=== PATIENT | male | born 1980 | race Caucasian/White ===

== ENCOUNTER 2016-04-23 23:08 | Emergency (ER) | payer MEDICAID ==
[2016-04-23 23:23] VITALS: RESP 16; TEMP 98.4; O2SAT 96
[2016-04-24] MEDS ORDERED: TRIAMCINOLONE 0.1% 15 GM CRTUBE TP SCH
[2016-04-24] MEDS ORDERED: DEXAMETHASONE 4 MG TAB PO ONE (00:32)
[2016-04-24] MEDS ORDERED: FAMOTIDINE 20 MG TAB PO ONE (00:32)
--- NOTE | 2016-04-24 00:36 | EDPHY ---
H & P Stated Complaint: c/o itching from back down LUE Source: Patient Exam Limitations: No limitations - Medical/Surgical History Hx Asthma: No Hx Chronic Respiratory Disease: No Hx Diabetes: No Hx Cardiac Disease: No Hx Renal Disease: No Hx Cirrhosis: No Hx Alcoholism: No Hx HIV/AIDS: No Hx Splenectomy or Spleen Trauma: No Other PMH: Chronic back pain, migraines, reflux, head injury, syncope, chest pain - Social History Smoking Status: Former smoker HPI/ROS: CHIEF COMPLAINT: Itching, rash HISTORY OF PRESENT ILLNESS: patient complains of several days history of itching and rash. This is primarily to the left arm has also spread to the back and right arm. There is nothing between the fingers or toes. Moderately pruritic. No redness surrounding it. No purulence. No fever or chills. No headache. No neck pain or stiffness. No known contacts that caused this. No swelling of the mouth, lips or tongue. No difficulty breathing. Has had similar things in the past that responded to a medication that his has, but the medications that help this time. Has no other associated complaints or modifying factors. The patient is homeless and does live in a nursing home right now. REVIEW OF SYSTEMS: Ten systems reviewed and are negative unless otherwise noted in the HPI EXAMINATION General Appearance: Alert, no distress Head: normocephalic, atraumatic Eyes: Pupils equal and round, no conjunctival pallor or injection ENT, Mouth: Mucous membranes moist . Airway is patent. There is no edema of the mouth, lips or tongue. No erythema Neck: Normal inspection, supple, non-tender Respiratory: Lungs are clear to auscultation Cardiovascular: Regular rate and rhythm . No murmur. Gastrointestinal: Abdomen is soft and nontender Back: non-tender, no bony abnormalities Neurological: A&O, nonfocal, normal gait Skin: Warm and dry, Erythematous an urticarial rash to the arms and trunk. There are no lesions between the fingers. No evidence of scabies. No petechiae or purpura. Extremities: Nontender, no pedal edema Psychiatric: Mood and affect normal DIFFERENTIAL DIAGNOSES: Including but not limited to Urticaria, contact dermatitis, dermatitis NOS, MDM: rash to the arms and trunk that is pruritic. There is no petechiae or purpura. No evidence of scabies or bed bugs. No involvement of the airway oropharynx. I will discharge the patient home with a topical steroid, a dose of Decadron, and Pepcid. I do not appreciate any other systemic illness. He has instructions to follow up at [facility] for definitive care. SUPERVISION: This patient was independently evaluated without the aide of supervising physician. (Denny Cesar) Constitutional: Initial Vital Signs Temperature (C) 36.9 C 04/23/16 23:20 Heart Rate 76 04/23/16 23:20 Respiratory Rate 16 04/23/16 23:20 Blood Pressure 126/69 H 04/23/16 23:20 O2 Sat (%) 96 04/23/16 23:20 O2 Delivery Mode Room Air Allergies/Adverse Reactions: morphine Allergy (Intermediate, Verified 04/23/16 23:23) makes my left side seize up Home Medications: Medication Instructions Recorded Triamcinolone 0.1% [Triamcinolone 1 vanessa TP TID #1 cream 04/24/16 0.1% Cream] Medical Decision Making ED Course/Re-evaluation: PHYSICIAN DOCUMENTATION: The patient was evaluated and managed by the Physician [employer] Machine Setter. My co- signature indicates that I have reviewed this chart and I agree with the findings and plan of care as documented. I am the secondary supervising physician. (Dolores Glover) - Data Points Medications Given: Discontinued Medications Dexamethasone (Decadron) 8 mg PO EDNOW ONE Stop: 04/24/16 00:33 Last Admin: 04/24/16 00:42 Dose: 8 mg Famotidine (Pepcid) 20 mg PO EDNOW ONE Stop: 04/24/16 00:33 Last Admin: 04/24/16 00:42 Dose: 20 mg Triamcinolone (Triamcinolone 0.025%) 1 vanessa TP TID KIMI Stop: 10/21/16 08:59 Last Admin: 04/24/16 00:41 Dose: 1 vanessa Departure - Departure Disposition: Home, Routine, Self-Care Clinical Impression: Pruritic rash Condition: Good Instructions: Triamcinolone (On the skin), Urticaria (ED), Acute Rash (ED) Additional Instructions: follow-up with [facility]. Prescriptions as listed and discussed. Benadryl 25-50 mg [id number] every 6 hours as needed. Return to the ER for worsening symptoms, difficulty breathing, swelling of the lips, mouth or tongue Referrals: NONE *PRIMARY CARE P,. [Primary Care Provider] - As per Instructions [facility],. [Clinic] - As per Instructions Prescriptions: Triamcinolone 0.1% [Triamcinolone 0.1% Cream] 1 vanessa TP TID #1 cream
[2016-04-24 00:49] VITALS: BP 136/77; PULSE 88
[2016-04-24] MEDS ORDERED: TRIAMCINOLONE 0.025% 15 GM CRTUBE TP SCH (09:00)
== END 2016-04-24 00:49 | disposition home or self-care (01) ==
DX: R21 Rash and other nonspecific skin eruption (principal); Z87.891 Personal history of nicotine dependence

== ENCOUNTER 2017-03-20 21:48 | Emergency (ER) | payer MEDICAID ==
--- NOTE | 2017-03-20 21:55 | EDPHY ---
H & P HPI/ROS: HPI CHIEF COMPLAINT: Chest pain HISTORY OF PRESENT ILLNESS: This patient 37-year-old male, he states he is otherwise healthy with no significant medical history does not have any underlying lung disease or cardiovascular disease he presents emergency room by EMS after he states he has had chest pain in the center of his chest for the past 3 hr. It has been constant. It started at rest. He has no other associated symptoms. Denies nausea denies numbness or tingling denies radiation of pain denies shortness of breath denies pleuritic pain. Patient states that he is homeless. Patient denies drugs alcohol or tobacco. Patient states he never had a cardiovascular event or underlying lung disease. When I asked him describes chest pain he states that "something is reaching in his chest and pulling his heart out" Past Medical History: Denies significant medical history Past Surgical History: Denies significant surgical history Social History: Homeless, denies drugs alcohol tobacco. Family History: Noncontributory ROS REVIEW OF SYSTEMS: A comprehensive 10 point review of systems is otherwise negative aside from elements mentioned in the history of present illness. Exam Constitutional appears unkept, triage nursing summary reviewed, vital signs reviewed, awake/alert. Eyes normal conjunctivae and sclera, EOMI, PERRLA. HENT normal inspection, atraumatic, moist mucus membranes, no epistaxis, neck supple/ no meningismus, no raccoon eyes. Respiratory clear to auscultation bilaterally, normal breath sounds, no respiratory distress, no wheezing. Cardiovascular rate normal, regular rhythm, no murmur, no edema, distal pulses normal. Gastrointestinal soft, non-tender, no rebound, no guarding, normal bowel sounds, no distension, no pulsatile mass. Genitourinary no CVA tenderness. Musculoskeletal no midline vertebral tenderness, full range of motion, no calf swelling, no tenderness of extremities, no meningismus, good pulses, neurovascularly intact. Skin pink, warm, & dry, no rash, skin atraumatic. Neurologic awake, alert and oriented x 3, AAOx3, moves all 4 extremities equally, motor intact, sensory intact, CN II-XII intact, normal cerebellar, normal vision, normal speech. Psychiatric normal mood/affect. Heme/Lymph/Immune no lymphadenopathy. Differential Diagnosis: Includes but is not limited to in a particular order atypical chest pain, GERD, gastritis, esophageal spasm, peptic ulcer disease, doubt acute coronary syndrome given the clinical presentation and risk factors. Medical Decision Making: Plan for this patient full monitoring and evaluation advisor, IV establishment blood draw, obtain EKG and troponin, chest x-ray. Rule out acute coronary syndrome. Will obtain a GI cocktail to see if this improves his pain. Patient has had chest discomfort constantly for 3 hr. Atypical description of it. Will rule out acute coronary syndrome. Re-evaluation: EKG interpretation by me on record in [facility] system. Impression time of EKG 2152 sinus rhythm rate of 77 no acute ischemic change. No ST elevation no ST depression no significant T-wave abnormalities. Unremarkable nonischemic EKG. 1227: Patient's workup has been unremarkable is a nonischemic EKG normal blood work normal troponin. Unremarkable chest x-ray. Patient is sitting up in bed eating a sandwich and charging his phone. He tells me has no complaints. He is resting comfortably. Denies chest pain or shortness of breath. His clinical presentation is more consistent with GERD and cardiac disease. Additionally patient states at time of discharge that his right 4th digit is little red and swollen that he picked the scab yesterday. He is concerned about infection would like antibiotics. On exam there is a scab freshly picked. Will place on Keflex p.o. 1st dose given in emergency room and take-home pack. Source: Patient, EMS - Medical/Surgical History Hx Asthma: No Hx Chronic Respiratory Disease: No Hx Diabetes: No Hx Cardiac Disease: No Hx Renal Disease: No Hx Cirrhosis: No Hx Alcoholism: No Hx HIV/AIDS: No Hx Splenectomy or Spleen Trauma: No Other PMH: Chronic back pain, migraines, reflux, head injury, syncope, chest pain - Social History Smoking Status: Former smoker Constitutional: Initial Vital Signs Temperature (C) 36.8 C 03/20/17 21:49 Heart Rate 78 03/20/17 21:49 Respiratory Rate 16 03/20/17 21:49 Blood Pressure 143/78 H 03/20/17 21:49 O2 Sat (%) 98 03/20/17 21:49 O2 Delivery Mode Room Air Allergies/Adverse Reactions: morphine Allergy (Intermediate, Verified 03/20/17 21:56) makes my left side seize up Home Medications: Medication Instructions Recorded Cephalexin [Keflex] 500 mg PO Q6H #28 cap 03/21/17 Ranitidine HCl [Zantac] 150 mg PO DAILY #30 tablet 03/21/17 Medical Decision Making - Diagnostics Imaging Results: Imaging Impressions Chest X-Ray 03/20/17 21:59 Impression: Negative portable chest. - Data Points Laboratory Results: Laboratory Results 03/20/17 21:50 03/20/17 21:50 03/20/17 03/20/17 03/20/17 23:14 21:50 21:50 WBC RBC Hgb Hct MCV MCH MCHC RDW Plt Count MPV Neut % (Auto) Lymph % (Auto) [place] % (Auto) Eos % (Auto) Baso % (Auto) Nucleat RBC Rel Count Absolute Neuts (auto) Absolute Lymphs (auto) Absolute Monos (auto) Absolute Eos (auto) Absolute Basos (auto) Absolute Nucleated RBC Immature Gran % Immature Gran # PT 13.7 SEC SEC (12.0-15.0) INR 1.03 (0.83-1.16) APTT 27.8 SEC SEC (23.0-38.0) D-Dimer < 0.27 ug/mLFEU ug/mLFEU (0.00-0.50) Sodium 143 mEq/L mEq/L (135-145) Potassium 3.8 mEq/L mEq/L (3.5-5.2) Chloride 106 mEq/L mEq/L (97-110) Carbon Dioxide 22 mEq/l mEq/l (22-31) Anion Gap 15 mEq/L mEq/L (8-16) BUN 15 mg/dL mg/dL (7-23) Creatinine 0.7 mg/dL mg/dL (0.7-1.3) Estimated GFR > 60 Glucose 107 mg/dL H mg/dL (70-100) Calcium 9.4 mg/dL mg/dL (8.5-10.4) Magnesium 1.7 mg/dL mg/dL (1.6-2.3) Total Bilirubin 0.4 mg/dL mg/dL (0.1-1.4) Conjugated Bilirubin 0.2 mg/dL mg/dL (0.0-0.5) Unconjugated Bilirubin 0.2 mg/dL mg/dL (0.0-1.1) AST 22 IU/L IU/L (17-59) ALT 33 IU/L IU/L (21-72) Alkaline Phosphatase 57 IU/L IU/L (38-126) Troponin I < 0.012 ng/mL ng/mL (0.000-0.034) Total Protein 7.0 g/dL g/dL (6.3-8.2) Albumin 4.4 g/dL g/dL (3.5-5.0) Lipase 100 IU/L IU/L (23-300) Urine Opiates Screen NEGATIVE (NEGATIVE) Urine Barbiturates NEGATIVE (NEGATIVE) Ur Phencyclidine Scrn NEGATIVE (NEGATIVE) Ur Amphetamine Screen NEGATIVE (NEGATIVE) U Benzodiazepines Scrn NEGATIVE (NEGATIVE) Urine Cocaine Screen NEGATIVE (NEGATIVE) U Marijuana (THC) Screen NON-NEGATIVE H (NEGATIVE) 03/20/17 21:50 WBC 6.79 10^3/uL 10^3/uL (3.80-9.50) RBC 4.75 10^6/uL 10^6/uL (4.40-6.38) Hgb 14.7 g/dL g/dL (13.7-17.5) Hct 42.2 % % (40.0-51.0) MCV 88.8 fL fL (81.5-99.8) MCH 30.9 pg pg (27.9-34.1) MCHC 34.8 g/dL g/dL (32.4-36.7) RDW 13.2 % % (11.5-15.2) Plt Count 243 10^3/uL 10^3/uL (150-400) MPV 9.8 fL fL (8.7-11.7) Neut % (Auto) 64.7 % % (39.3-74.2) Lymph % (Auto) 25.8 % % (15.0-45.0) [place] % (Auto) 8.5 % % (4.5-13.0) Eos % (Auto) 0.4 % L % (0.6-7.6) Baso % (Auto) 0.3 % % (0.3-1.7) Nucleat RBC Rel Count 0.0 % % (0.0-0.2) Absolute Neuts (auto) 4.39 10^3/uL 10^3/uL (1.70-6.50) Absolute Lymphs (auto) 1.75 10^3/uL 10^3/uL (1.00-3.00) Absolute Monos (auto) 0.58 10^3/uL 10^3/uL (0.30-0.80) Absolute Eos (auto) 0.03 10^3/uL 10^3/uL (0.03-0.40) Absolute Basos (auto) 0.02 10^3/uL 10^3/uL (0.02-0.10) Absolute Nucleated RBC 0.00 10^3/uL 10^3/uL (0-0.01) Immature Gran % 0.3 % % (0.0-1.1) Immature Gran # 0.02 10^3/uL 10^3/uL (0.00-0.10) PT INR APTT D-Dimer Sodium Potassium Chloride Carbon Dioxide Anion Gap BUN Creatinine Estimated GFR Glucose Calcium Magnesium Total Bilirubin Conjugated Bilirubin Unconjugated Bilirubin AST ALT Alkaline Phosphatase Troponin I Total Protein Albumin Lipase Urine Opiates Screen Urine Barbiturates Ur Phencyclidine Scrn Ur Amphetamine Screen U Benzodiazepines Scrn Urine Cocaine Screen U Marijuana (THC) Screen Medications Given: Discontinued Medications Al Hydroxide/Mg Hydroxide (Maalox Susp) 30 ml PO ONCE ONE Stop: 03/20/17 22:01 Last Admin: 03/20/17 22:05 Dose: 30 ml Hyoscyamine Sulfate (Levsin, Hyomax-Sl) 0.25 mg PO ONCE ONE Stop: 03/20/17 22:01 Last Admin: 03/20/17 22:05 Dose: 0.25 mg Sodium Chloride (Ns) 1,000 mls @ 0 mls/hr IV EDNOW ONE; Wide Open PRN Reason: Protocol Stop: 03/20/17 22:00 Last Admin: 03/20/17 22:15 Dose: 1,000 mls Famotidine/Sodium Chloride (Pepcid 20 Mg (Premix)) 50 mls @ 200 mls/hr IV EDNOW ONE Stop: 03/20/17 22:14 Last Admin: 03/20/17 22:04 Dose: 50 mls Lidocaine (Lidocaine 2% Viscous) 15 ml PO ONCE ONE Stop: 03/20/17 22:01 Last Admin: 03/20/17 22:05 Dose: 15 ml Departure - Departure Disposition: Home, Routine, Self-Care Clinical Impression: GERD (gastroesophageal reflux disease) Qualifiers: Esophagitis presence: with esophagitis Qualified Code(s): K21.0 - Gastro- esophageal reflux disease with esophagitis Condition: Good Instructions: Gastroesophageal Reflux Disease (ED) Additional Instructions: 1. Return emergency room if you have worsening symptoms questions or concerns. 2. Antibiotic as prescribed. 3. Zantac as prescribed. Referrals: Patient,NotPresent [Unknown] - As per Instructions Prescriptions: Cephalexin [Keflex] 500 mg PO Q6H #28 cap Ranitidine HCl [Zantac] 150 mg PO DAILY #30 tablet
--- NOTE | 2017-03-20 21:55 | CPEKG ---
Heart Rate: 77 RR Interval: 779 P-R Interval: 156 QRSD Interval: 88 QT Interval: 372 QTC Interval: 421 P [place]: 47 QRS [place]: 12 T Wave [place]: 34 EKG Severity - NORMAL ECG - EKG Impression: SINUS RHYTHM Electronically Signed By: Kymberly Uriostegui 20-Mar-2017 22:29:58
[2017-03-20 21:56] VITALS: TEMP 98.2
[2017-03-20] MEDS ORDERED: NS 1,000 ML IV ONE (21:59)
[2017-03-20] MEDS ORDERED: MAG HYDROX/AL HYDROX/SIMETH 30 ML UDCUP PO ONE (22:00)
[2017-03-20] MEDS ORDERED: FAMOTIDINE 20 MG/NACL 50 ML IV ONE (22:00)
[2017-03-20] MEDS ORDERED: LIDOCAINE 2% VISCOUS 15 ML UDCUP PO ONE (22:00)
[2017-03-20] MEDS ORDERED: HYOSCYAMINE SULFATE 0.125 MG TAB PO ONE (22:00)
[2017-03-20 22:04] LABS: PLATELET COUNT 243 10^3/uL (150-400)
[2017-03-20 22:15] LABS: INR 1.03 (0.83-1.16); PROTIME(PATIENT) 13.7 SEC (12.0-15.0)
[2017-03-21] MEDS ORDERED: CEPHALEXIN 500 MG CAP PO ONE (00:27)
[2017-03-21] MEDS ORDERED: CEPHALEXIN 500MG PREPACK#4 BTL TAKEHOME ONE (00:27)
[2017-03-21 00:40] VITALS: BP 126/85; PULSE 77; RESP 16; O2SAT 96
== END 2017-03-21 00:40 | disposition home or self-care (01) ==
LOC: EDUNIT#
DX: K21.0 Gastro-esophageal reflux disease with esophagitis (principal); E86.9 Volume depletion, unspecified; Z87.891 Personal history of nicotine dependence
CPT/HCPCS: 80305; 96374

== ENCOUNTER 2017-04-22 17:15 | Emergency (ER) | payer MEDICAID ==
[~2017-04-22 17:15] MED LIST: predniSONE 20 MG TAB PO SCH
[2017-04-22 17:36] VITALS: PULSE 78; TEMP 97.7
[2017-04-22] MEDS ORDERED: IBUPROFEN 600 MG TAB PO ONE (19:26)
[2017-04-22] MEDS ORDERED: predniSONE 20 MG TAB PO ONE (19:26)
--- NOTE | 2017-04-22 19:28 | EDPHY ---
H & P Time Seen by Provider: 04/22/17 19:06 HPI/ROS: CHIEF COMPLAINT: Back pain HISTORY OF PRESENT ILLNESS: Patient is a 37-year-old male who presents emergency department with low back pain. He has history of chronic low back pain. He states he 1st injured his back in 1993. He is currently on no medications for his back. He woke this morning with increasing back pain. He has no numbness or tingling. No weakness. No incontinence of urine or stool. No fevers or chills. The patient is homeless and is living on history. REVIEW OF SYSTEMS: My complete review of systems is negative except as mentioned in the HPI. Past Medical/Surgical History: Includes chronic back pain, migraines, reflux, head injury, syncope Smoking Status: Former smoker Physical Exam: Vitals noted GENERAL: Well-appearing, in no acute distress, alert. HEENT: Eyes normal to inspection, normal pharynx, no signs of dehydration. NECK: No thyromegaly, no lymphadenopathy, supple. RESPIRATORY: Clear to auscultation bilaterally, no rales, rhonchi or wheezing. CVS: Regular rate and rhythm, no rubs, murmurs, or gallops. ABDOMEN: Soft, nontender, nondistended, no organomegaly. BACK: Normal to inspection, no CVA tenderness. SKIN: Normal color, no rash, warm, dry. No pallor. EXTREMITIES: No pedal edema, no calf tenderness, no Homans sign or cords, no joint swelling. NEURO/PSYCH: Alert and oriented, normal mood and affect, normal motor sensory exam. No obvious cranial nerve deficit. Negative leg raise bilaterally. Constitutional: Initial Vital Signs Temperature (C) 36.5 C 04/22/17 17:34 Heart Rate 78 04/22/17 17:34 Respiratory Rate 17 04/22/17 17:34 Blood Pressure 116/67 04/22/17 17:34 O2 Sat (%) 97 04/22/17 17:34 O2 Delivery Mode Room Air Allergies/Adverse Reactions: morphine Allergy (Intermediate, Verified 04/22/17 17:32) makes my left side seize up Home Medications: Medication Instructions Recorded Ibuprofen 400 mg PO TID #9 tablet 04/22/17 predniSONE 20 mg PO DAILY 4 Days tab 04/22/17 Medical Decision Making ED Course/Re-evaluation: I discussed the plan with the patient. I answered all his questions. He will be given a course of prednisone as well as a prescription for ibuprofen. He is given the 1st dose in the emergency department. He was given warnings prior to leaving. He will return with worsening symptoms. Differential Diagnosis: My differential includes but is not limited to back pain, back strain, disc herniation, cauda equina syndrome, epidural abscess, hematoma, mass Departure - Departure Disposition: Home, Routine, Self-Care Clinical Impression: Low back pain Qualifiers: Chronicity: acute Back pain laterality: midline Sciatica presence: without sciatica Qualified Code(s): M54.5 - Low back pain Condition: Good Instructions: Low Back Strain (ED) Additional Instructions: Take your course of medication as directed. Return with worsening symptoms. Referrals: [facility],. [Clinic] - 2-3 days, if not improved
[2017-04-22 20:02] VITALS: BP 115/75; RESP 16; O2SAT 96
== END 2017-04-22 20:02 | disposition home or self-care (01) ==
LOC: EDUNIT#
DX: M54.5 Low back pain (principal); Z87.891 Personal history of nicotine dependence
CPT/HCPCS: J7512

== ENCOUNTER 2018-07-19 21:32 | Emergency (ER) | payer MEDICAID ==
[2018-07-19 21:44] VITALS: BP 119/69
--- NOTE | 2018-07-19 21:59 | EDPHY ---
H & P Stated Complaint: reports L foot pain swelling, ambulatory with increased pain Time Seen by Provider: 07/19/18 21:49 HPI/ROS: Chief Complaint: Foot swelling HPI: 38-year-old male complaining of bilateral foot swelling, left greater than right which is been worsening for the last day. Patient was recently staying in the skilled nursing in [place] and had bed bug bites to his lower extremities. He has been scratching. There has been some redness. Says after walking from the library to [address] the pain got worse today. No fevers or chills. No streaking up his leg. No prior injuries. He does state he has been scratching his itching. The pant legs rubbing against him is also irritating. Denies any trauma or injuries. ROS: 10 systems were reviewed and were negative except those elements noted in the HPI. PMH: Denies Social History: Denies smoking, currently homeless Family History: non-contributory Physical Exam: Gen: Awake, Alert, No Distress HEENT: Nose: no rhinorrhea Eyes: PERRLA, EOMI Mouth: Moist mucosa Neck: Supple, no JVD Chest: nontender, lungs clear to auscultation Heart: S1, S2 normal, no murmur Abd: Soft, non-tender, no guarding Back: no CVA tenderness, no midline tenderness Ext: Moderate bilateral foot edema. He has got excoriations on bilateral ankles with minimal baseline erythema. Erythema is not confluent some. Is not circumferential. Lesions are in various stages of healing consistent with scratching. He has 2+ dorsalis pedis pulses bilaterally, capillary refills less than 3 sec. No bony tenderness or deformity. Skin: no rash Neuro: CN II-XII intact, Sensation grossly intact, Strength 5/5 in bilateral upper and lower extremities - Personal History Current Tetanus/Diphtheria Vaccine: No Current Tetanus Diphtheria and Acellular Pertussis (TDAP): No - Medical/Surgical History Hx Asthma: No Hx Chronic Respiratory Disease: No Hx Diabetes: No Hx Cardiac Disease: No Hx Renal Disease: No Hx Cirrhosis: No Hx Alcoholism: No Hx HIV/AIDS: No Hx Splenectomy or Spleen Trauma: No Other PMH: Chronic back pain, migraines, reflux, head injury, syncope, chest pain - Social History Smoking Status: Former smoker Constitutional: Initial Vital Signs Temperature (C) 37.4 C 07/19/18 21:42 Heart Rate 95 07/19/18 21:42 Respiratory Rate 20 07/19/18 21:42 Blood Pressure 119/69 07/19/18 21:42 O2 Sat (%) 95 07/19/18 21:42 O2 Delivery Mode Room Air Allergies/Adverse Reactions: morphine Allergy (Intermediate, Verified 07/19/18 21:42) makes my left side seize up Home Medications: Medication Instructions Recorded Cephalexin [Keflex (*)] 500 mg PO Q6H #28 cap 07/19/18 Medical Decision Making ED Course/Re-evaluation: Patient has mild early cellulitis secondary to excoriations from bed bug bites. Will start him on Keflex, ibuprofen, he will follow up in [facility] in 2 -3 days for further evaluation. Departure - Departure Disposition: Home, Routine, Self-Care Clinical Impression: Cellulitis Condition: Good Instructions: Cellulitis (ED), Cephalexin (By mouth) Additional Instructions: Follow up at [facility] in 2-3 days for further evaluation. Please take your full course of antibiotics. Take ibuprofen, 600 mg every 8 hr. You may alternate with acetaminophen, 1000 mg every 8 hr. Referrals: [facility],. [Clinic] - As per Instructions Prescriptions: Cephalexin [Keflex (*)] 500 mg PO Q6H #28 cap
[2018-07-19] MEDS ORDERED: IBUPROFEN 600 MG TAB PO ONE (22:01)
[2018-07-19] MEDS ORDERED: CEPHALEXIN 500MG PREPACK#4 BTL TAKEHOME ONE (22:01)
== END 2018-07-19 22:15 | disposition home or self-care (01) ==
LOC: EDUNIT#
DX: L03.115 Cellulitis of right lower limb (principal); L03.116 Cellulitis of left lower limb; M54.5 Low back pain; G89.29 Other chronic pain; G43.909 Migraine, unspecified, not intractable, without status migrainosus; K21.9 Gastro-esophageal reflux disease without esophagitis; Z87.891 Personal history of nicotine dependence